=== PATIENT | female | born 2000 | race Caucasian/White ===

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

== ENCOUNTER → 2021-11-16 | Outpatient (CLI) | payer MEDICAID | LOC: COL.RAD 12:01 | DX: M54.9 Dorsalgia, unspecified (principal) ==